=== PATIENT | female | born 1965 | race Caucasian/White ===

== ENCOUNTER 2020-03-28 05:31 | Observation (INO) | payer BC, SELFPAY ==
--- NOTE | ~2020-03-28 | XR_ITS ---
EXAMINATION: XR chest 2V DATE: 03/28/2020 08:20 INDICATION: Hypertension. Preop. TECHNIQUE: Frontal and lateral views of the chest were obtained. COMPARISON: Chest 2 views 03/05/2019 FINDINGS: The chest demonstrates clear lungs without pneumonia, pleural effusion, or pneumothorax. Th e heart size is normal. There are prominent paracardial fat pads. IMPRESSION: 1. No acute cardiopulmonary disease. Reviewed, dictated and finalized at location A.
[2020-03-28 07:34] VITALS: BMI 35.4
--- NOTE | 2020-03-28 07:44 | ADMGEN ---
This patient, Ivonne Chavira, was admitted to 2 Medical Room 240-01. Patient/family oriented to hospital policies and general routines including ID bracelet, bed and alarms, visiting hours, pain management, procedures, bathroom and other care routines, personal items, smoking policy, room service/diet, and visiting hours. Valuables list has been completed. Information on how to activate the Rapid Response Team has been discussed. Patient/Family are encouraged to report perceived risks to care and to ask questions if they do not understand what they are told or what they should do.
[2020-03-28 07:50] VITALS: BP 112/60; PULSE 90; RESP 16; TEMP 37.2; O2SAT 97
[2020-03-28] MEDS: SODIUM CHLORIDE 0.9% IV 1,000 ML 100 ML IV CONT ×2 (08:49→19:47)
[2020-03-28] MEDS: DOCUSATE SODIUM 100 MG CAPSULE PO ×2 (08:51→17:46)
[2020-03-28] MEDS: ENOXAPARIN 40 MG/0.4 ML SYRINGE SUB-Q (08:58)
[2020-03-28 10:00] VITALS: BP 101/65; PULSE 87; RESP 14; TEMP 36.7; O2SAT 96
[2020-03-28 10:07] LABS: Add Urine Microscopic? YES; Appearance Urine Clear (Clear); Bilirubin Urine Negative (Negative); Blood Urine 1+ (Negative); Color Urine Straw (Yellow); Glucose Urine UA Negative (Negative); Ketones Urine Trace mg/dL (Negative); Leukocyte Esterase Ur Negative LEU/UL (Negative); Nitrate Urine Negative (Negative); Protein Urine Negative (Negative); Squamous Epithelial Cell Urine Few /hpf (Few); Urobilinogen Urine Negative mg/dL (<2.0); WBC Urine 0-3 /hpf
[2020-03-28] MEDS: MORPHINE SULFATE 2 MG/ML INJ IV PUSH (10:51)
[2020-03-28] MEDS: ONDANSETRON INJ 4 MG/2 ML VIAL IV PUSH ×3 (10:57→23:59)
[2020-03-28 14:00] VITALS: BP 105/65; PULSE 87; RESP 14; TEMP 36.9; O2SAT 96
--- NOTE | 2020-03-28 14:51 | PM.IMHP ---
H&P: HPI History of Present Illness Date/Time: 03/28/20 14:51 Chief complaint: Stump Appendicitis Narrative: Ivonne Chavira is a 54 year old female states that she was feeling normal and okay until approximately 4:30 p.m. yesterday. She then began having some cramping abdominal pain and by evening was feeling worse and nauseated. Therefore she went to the emergency room at [facility]. Workup there showed a normal white count at around [address] scan which showed what appeared to be stump appendicitis with a single appendicoliths still at the base of the appendix. Interestingly I reviewed her previous op note and the pictures from the surgery. She did have a normal appearing Meckel's diverticulum off the more proximal ileum at the time of her surgery therefore, I reviewed her CT scan with our radiologist but he still agrees with the radiologist at [facility] that there appears to be a small stump of the appendix with appendicolith in it and some surrounding stranding consistent with inflammation. There is no sign of perforation. Review of the previous CT scan from February of last year and the CT scan reveals no obvious signs of inflammation or even imaging imaging of the Meckel's diverticulum. Two fibroids can be seen on the uterus also. Patient has some chills in the emergency room there got a dose of Levaquin and Flagyl prior to being transferred to our facility. Because of this I am doing blood cultures under prior to resuming antibiotics which will be Zosyn 3.375 g Q 6 hours starting at 3:00 p.m. today. Review of Systems Constitutional: Constitutional: Reports as per HPI and Denies headache(s) Eyes: Eyes: Denies loss of vision and Denies eye pain ENT: Reports Normal hearing present, Denies change in voice, Denies dizziness and Denies headache(s) Cardiovascular: Cardiovascular: Denies chest pain and Denies dyspnea Respiratory: Respiratory: Denies dyspnea and Denies wheezing Gastrointestinal: Gastrointestinal: Reports abdominal pain ( Mild in the lower right abdomen), Denies constipation, Reports GI cramping, Denies dyspepsia and Denies vomiting Genitourinary: Comments: known history of uterine fibroids and a previous tubal ligation Musculoskeletal: Musculoskeletal: Denies back pain and Denies arthralgias Neurologic: Reports Normal hearing present, Denies dizziness, Reports headache(s) ( patient does have migraines and uses Maxalt for this.), Denies loss of vision and Denies memory loss Psychiatric: Psychiatric: Reports no additional psychiatric complaints, Denies memory loss and Denies panic attacks Endocrine: Endocrine: Reports no additional endocrine complaints Hematologic/Lymphatic: Hematologic/Lymphatic: Reports no additional hematologic/lymphatic complaints Allergic/Immunologic: Allergic/Immunologic: Denies wheezing PMFSH Past Medical History Medical History (Updated 03/28/20 @ 15:02 by Chico Lazo MD) HTN (hypertension) (Unknown) Meckel's diverticulum (~02/2019) Family History Family History (Updated 03/28/20 @ 15:23 by Valeria Kimble RN) Mother Diabetes mellitus Family history of malignant neoplasm Acute myocardial infarction Hypertension High cholesterol Social History Social History Smoking status: Never smoker Alcohol intake: never Substance use: never Gender identity (if verbalized by the patient): Female Spiritual care concerns: No Meds Home Medications and Allergies Home Medications Medication Instructions Recorded Confirmed Type fluoxetine 20 mg PO DAILY 03/28/20 03/28/20 History metoprolol tartrate 50 mg PO Q12H 03/28/20 03/28/20 History rizatriptan [Maxalt-[employer]ER [employer]PERATOR] 10 mg PO ONCE PRN 03/28/20 03/28/20 History simvastatin 20 mg PO DAILY 03/28/20 03/28/20 History Allergies Allergy/AdvReac Type Severity Reaction Status Date / Time No Known Allergies Allergy Verified 03/28/20 07:40 Vital Signs Vital Signs - 24 hr 03/28/20 07:50
[2020-03-28] MEDS: MORPHINE SULFATE 4 MG/ML INJ IV PUSH (17:08)
[2020-03-28 18:00] VITALS: BP 135/69; PULSE 88; RESP 14; TEMP 37.2; O2SAT 96
[2020-03-28 21:54] VITALS: BP 126/64; PULSE 89; RESP 18; TEMP 36.9; O2SAT 95
[2020-03-29] VITALS (15 sets, daily range): BP systolic 123–146; BP diastolic 66–88; PULSE 70–90; RESP 12–19; TEMP 36.2–37.5; O2SAT 90–100
[2020-03-29] MEDS: MORPHINE SULFATE 2 MG/ML INJ IV PUSH ×3 (03:25→18:16)
[2020-03-29 05:58] LABS: Basophils Percent Auto 0.4 % (0.2-1.2); Eosinophils Percent Auto 0.4 % (0-4.4); Hematocrit 37.8 % (37.0-47.0); Hemoglobin 12.2 g/dL (12.0-15.0); Immature Granulocyte Absolute 0.05 K/mm3 (0.00-0.031); Immature Granulocyte Percent A 0.5 % (0-0.5); Lymphocytes Absolute Auto 0.86 K/mm3 (0.9-3.2); Lymphocytes Percent Auto 8.5 % (18.3-44.2); Mean Corpuscular HGB Conc 32.3 g/dl (32-36); Mean Corpuscular Hemoglobin 30.8 pg (26-34); Mean Corpuscular Volume 95.5 fl (80-100); Mean Platelet Volume 11.4 fl (7.4-10.4); Monocytes Absolute Auto 0.6 K/mm3 (0.1-0.6); Monocytes Percent Auto 5.7 % (2.6-8.5); Neutrophils Absolute Auto 8.6 K/mm3 (1.3-6.7); Neutrophils Percent Auto 84.5 % (45.5-73.1); Platelet Count Result 152 k/mm3 (150-375); Red Blood Count 3.96 M/mm3 (4.2-5.4); Red Cell Distribution Width 13.1 % (11.5-14.5); White Blood Count 10.1 K/mm3 (4.5-10.0)
[2020-03-29] MEDS: SODIUM CHLORIDE 0.9% IV 1,000 ML 100 ML IV CONT (06:10)
[2020-03-29 06:18] LABS: Alanine Aminotransferase 19 U/L (4-35); Alkaline Phosphatase 128 U/L (38-126); Anion Gap 12 mmol/L (8-16); Aspartate Amino Transferase 27 U/L (14-36); Bilirubin,Total 0.6 mg/dL (0.2-1.3); Blood Urea Nitrogen 10 mg/dL (7-17); Calcium 8.6 mg/dL (8.4-10.2); Carbon Dioxide 22 mmol/L (22-30); Chloride 104 mmol/L (98-107); Estimated CRCL calculation 91 ml/min; Estimated Glomerular Filt Rate > 60; Glucose 135 mg/dL (65-105); Potassium 3.4 mmol/L (3.4-5.0); Sodium 138 mmol/L (137-145)
[2020-03-29] MEDS: ENOXAPARIN 40 MG/0.4 ML SYRINGE SUB-Q (09:16)
[2020-03-29] MEDS: DOCUSATE SODIUM 100 MG CAPSULE PO ×2 (09:16→18:14)
--- NOTE | 2020-03-29 11:15 | PC.NURSE ---
Called to room. Patient crying and holding her abdomen. States it hurts, it hurts, it feels like something exploded Abdomen remains bloated and tender to RLQ. Patient also c/o nausea. Called Dr. Lazo's office. Reported patient's complaints. Per office staff, Dr. Lazo is in the OR and they will get a message to him. Gave patient IV Zofran and scheduled IV Acetaminophen. Reassured patient that Dr. Lazo is being notified of her increased pain. Patient resting, but continues to cry. She states I want surgery right now. Explained to patient that Dr. Lazo will come up to assess her and will discuss options and treatment plan with her at that time.
[2020-03-29] MEDS: ONDANSETRON INJ 4 MG/2 ML VIAL IV PUSH ×2 (11:16→18:16)
[2020-03-29] MEDS: MORPHINE SULFATE 4 MG/ML INJ IV PUSH (12:13)
--- NOTE | 2020-03-29 12:27 | PC.NURSE ---
To OR via bed with OR staff. Consent to be obtained in preop.
--- NOTE | 2020-03-29 12:28 | WPDANESEPPF ---
Anes - Initial Pre Proc Eval Procedure: Operation Date: 03/29/20 12:30 Proposed Procedures p OPERATIVE LAPAROSCOPY,LYSIS OF ADHESIONS - Chico Lazo MD s POSSIBLE LAPAROTOMY,POSSIBLE SMALL BOWEL RESECTION - Chico Lazo MD Operation Date: 03/29/20 13:30 Proposed Procedures p Laparoscopic Appendiceal Stump Removal, Removal Of Meckel's Diverticulum - Chico Lazo MD Date/Time: 03/29/20 12:28 Surgeon: Chcio Lazo MD Pre Op Diagnosis: Stump Appendicitis Patient Data Age: 54 Gender: F Height: 1.65 m Weight: 96.6 kg Last Vital Signs Temp 37.2 C 03/29/20 10:00 Pulse 90 03/29/20 10:00 Resp 15 03/29/20 10:00 BP 141/70 H 03/29/20 10:00 Pulse Ox 95 03/29/20 10:00 Allergies Allergy/AdvReac Type Severity Reaction Status Date / Time No Known Allergies Allergy Verified 03/28/20 07:40 Home Medications Medication Instructions Recorded Confirmed Type fluoxetine 20 mg PO DAILY 03/28/20 03/28/20 History metoprolol tartrate 50 mg PO Q12H 03/28/20 03/28/20 History rizatriptan [Maxalt-[employer]] 10 mg PO ONCE PRN 03/28/20 03/28/20 History simvastatin 20 mg PO DAILY 03/28/20 03/28/20 History Laboratory Tests 03/29/20 03/29/20 05:00 05:00 WBC 10.1 K/mm3 H K/mm3 (4.5-10.0) RBC 3.96 M/mm3 L M/mm3 (4.2-5.4) Hgb 12.2 g/dL g/dL (12.0-15.0) Hct 37.8 % % (37.0-47.0) MCV 95.5 fl fl (80-100) MCH 30.8 pg pg (26-34) MCHC 32.3 g/dl g/dl (32-36) RDW 13.1 % % (11.5-14.5) Plt Count 152 k/mm3 k/mm3 (150-375) MPV 11.4 fl H fl (7.4-10.4) Immature Gran % (Auto) 0.5 % % (0-0.5) Neut % (Auto) 84.5 % H % (45.5-73.1) Lymph % (Auto) 8.5 % L % (18.3-44.2) Cole % (Auto) 5.7 % % (2.6-8.5) Eos % (Auto) 0.4 % % (0-4.4) Baso % (Auto) 0.4 % % (0.2-1.2) Lymph # (Auto) 0.86 K/mm3 L K/mm3 (0.9-3.2) Cole # (Auto) 0.6 K/mm3 K/mm3 (0.1-0.6) Eos # (Auto) 0.0 K/mm3 K/mm3 (0-0.3) Baso # (Auto) 0.0 K/mm3 K/mm3 (0.0-0.1) Abs Immat Gran (auto) 0.05 K/mm3 H K/mm3 (0.00-0.031) Absolute Neuts (auto) 8.6 K/mm3 H K/mm3 (1.3-6.7) Absolute Nucleated RBC 0.0 K/mm3 K/mm3 (0.0-0.012) Nucleated RBC % 0.0 % % (0.0-0.2) Sodium 138 mmol/L mmol/L (137-145) Potassium 3.4 mmol/L mmol/L (3.4-5.0) Chloride 104 mmol/L mmol/L (98-107) Carbon Dioxide 22 mmol/L mmol/L (22-30) Anion Gap 12 mmol/L mmol/L (8-16) BUN 10 mg/dL mg/dL (7-17) Creatinine 0.70 mg/dL mg/dL (0.7-1.0) Estim Creat Clear Calc 91 ml/min ml/min Estimated GFR > 60 (59 - ) Glucose 135 mg/dL H mg/dL (65-105) Calcium 8.6 mg/dL mg/dL (8.4-10.2) Total Bilirubin 0.6 mg/dL mg/dL (0.2-1.3) AST 27 U/L U/L (14-36) ALT 19 U/L U/L (4-35) Alkaline Phosphatase 128 U/L H U/L (38-126) Total Protein 7.0 g/dL g/dL (6.3-8.2) Albumin 4.0 g/dL g/dL (3.5-5.1) Patient hx anesthesia problems: none Family hx anesthesia problems: none PMFSH Past Medical History Medical History (Updated 03/29/20 @ 12:29 by Song Betancourt MD) Arthritis HTN (hypertension) (Unknown) Hypercholesterolemia Meckel's diverticulum (~02/2019) Obesity Family History Family History (Updated 03/28/20 @ 15:23 by Valeria Kimble RN) Mother Diabetes mellitus Family history of malignant neoplasm Acute myocardial infarction Hypertension High cholesterol Social History Social History Smoking status: Never smoker Alcohol intake: never Substance use: never Gender identity (if verbalized by the patient): Female Spiritual care concerns: No Anes - Eval Final PreProcedure Day of Procedure 03/29/20 12:28 Patient weight: obese Heart: regular rate and rhythm Lungs: clear to auscultation and normal air movement Airway: Mallampati sc
--- NOTE | 2020-03-29 13:23 | PM.PNGS ---
Progress Note: A&P Assessment and Plan (1) Appendicitis, unqualified: Code(s): K37 - Unspecified appendicitis Status: Acute Assessment and Plan: It appears the patient has appendicitis of the remaining stump of the appendix about 1.5 cm long. There is also an appendicolith and this with some surrounding stranding suggestive of inflammation. No signs of perforation at this time period Options discussed with the patient included antibiotic treatment and then subsequent interval appendectomy with possible removal of the known Meckel's diverticulum. Or more immediate operative intervention possibly tomorrow after continuing antibiotic therapy today. Will also keep this as an option as we treat her with IV antibiotics to see if her symptoms resolve. Since there is no signs of perforation or abscess I believe we can try antibiotic treatment and perhaps her surgical intervention would be easier and more complete if we did this in a delayed fashion when some of the inflmmation has resolved. Because she is not better today even with 24 hours of IV antibiotics will plan to proceed for into surgical intervention. The risks including that of bleeding infection possible injury to surrounding organs have been explained to her and she seems understand wished to proceed. (2) Meckel's diverticulum: Onset Date: ~02/2019 Code(s): Q43.0 - Meckel's diverticulum (displaced) (hypertrophic) Status: Acute Assessment and Plan: Non inflamed Meckel's diverticulum was noted at the time of her laparoscopic appendectomy in February of 2019. Have discussed with her going ahead if it seems appropriate to remove this at the time of this surgery. Pathology will then tells whether there is any gastric mucosa in the Meckel's diverticulum this hopefully will help her avoid a future problem. (3) Uterine fibroid: Onset Date: ~02/2019 Code(s): D25.9 - Leiomyoma of uterus, unspecified Status: Acute Assessment and Plan: One uterine fibroid was noted at the time of her surgical intervention for her appendectomy in February of 2019. Subsequently the recent CT scan shows a 2nd fibroid on the anterior upper uterus. Patient has had no unusual menstrual bleeding or other gynecologic problems in the interim period (4) HTN (hypertension): Onset Date: Unknown Code(s): I10 - Essential (primary) hypertension Status: Acute Assessment and Plan: patient on metoprolol for this and states that has been fairly well controlled. Subjective Subjective Date/Time Seen: 03/29/20 08:23 Patient states that she began feeling much worse at suppertime last night. She had severe pain in the right lower quadrant. She does not have widespread abdominal pain but also some significant nausea. She was NPO at midnight. At this point because this is worsening she would rather get this taken care of rather than try antibiotics and proceed with more elective surgery. Therefore, I will try to get her scheduled for a laparoscopy, removal of the appendiceal stump and removal of the Meckel's diverticulum for this afternoon. Review of Systems Constitutional: Constitutional: Reports no additional constitutional complaints ENT: Reports other (Mucous Membranes moist.) Cardiovascular: Cardiovascular: Denies dyspnea Respiratory: Respiratory: Denies pain on inspiration and Denies dyspnea Gastrointestinal: Gastrointestinal: Reports abdominal pain, Reports nausea and Reports vomiting Musculoskeletal: Musculoskeletal: Reports other (No calf swelling or edema) Integumentary/Breasts: Skin/Breast: Reports system reviewed and no additional complaints, except as docu Exam Const: General: cooperative, no acute distress, alert and awake Orientation/consciousness: patient oriented x3 HENMT: Mouth: Yes moist mucous membranes Neck: Neck: normal visual inspection Chest: Chest palpation & inspection: normal inspection o
[2020-03-29] MEDS: BUPIVACAINE/EPINEPHRINE 0.5% 30 ML VIAL 20 ML INFILTRATE (13:43)
[2020-03-29] MEDS: PHARMACIST COMMUNICATION ORDER 1 EACH XX (15:01)
[2020-03-29] MEDS: LACTATED RINGERS 1,000 ML 30 ML IV CONT ×2 (16:12)
--- NOTE | 2020-03-29 16:16 | PM.PROC ---
Procedure Note - Detailed Date of procedure: 03/29/20 Pre-op diagnosis: Stump Appendicitis 2. Meckel's diverticulum Post-op diagnosis: same Procedure performed: 1. laparoscopic excision of appendiceal stump with placement of GAGAN drain 2. laparoscopic diverticulectomy (Meckel's diverticulum). Description of procedure: The patient was seen again in the preoperative area and the abdomen was marked. The risks benefits possible complications of the procedure of laparoscopic and/or open laparotomy for removal of the remaining stump of the appendix that contains an appendicolith has been described to the patient. Possible problems including bleeding, infection, and possible injury to surrounding organs has been discussed. I also discussed removal of the known Meckel's diverticulum with her and she understands the possible risks of that to occluding leakage from the edge of the bowel. Following this patient was taken the operating room and standard induction of general anesthesia was undertaken by [facility] anesthesiology team. Following this a Charles catheter was placed and the patient was placed in supine position and entire abdomen was prepped and draped in usual sterile fashion. Following this we started by making a transverse infraumbilical incision in the old scar from her previous laparoscopic appendectomy. This was continued down through subcutaneous tissues and we placed a Doretha cannula in standard fashion, incising the fascia vertically and then placing 2 stay sutures in the fascia on either side and then under direct vision entering the peritoneum. The blunt Diez cannula was carefully slid into place and the balloon inflated and then the 2 stay sutures used to hold it in position. Following this the abdomen was insufflated to 15 mmHg CO2 gas. Careful inspection revealed the cecum to be somewhat high riding and perhaps at the mid abdominal level. Therefore, I placed 2 more ports, the 12 mm port in the suprapubic position at the midline almost in the same position that it was placed previously through that scar from her previous lap appendectomy. Subsequently I placed a 5 mm port in the left upper quadrant under direct vision. We used a 0 degree 5 mm camera so this camera and laparoscope were moved to that more upper left abdominal port site. I then completed operative laparoscopy using 2 graspers to carefully inspect the small bowel which seemed to be looped into the right lower quadrant and there was some purulent exudate noted in pelvis deep on the right and also just lateral to the cecum on the right. As we began pulling the small bowel toward the left and rotating the patient toward the left and into a Trendelenburg position, we identified the Meckel's diverticulum about 2 ft from the ileocecal valve. Using anendogia stapler with a blue load since this was a more clean procedure I did this first. We positioned the bowel such that I could place the stapler longitudinally across the base of the diverticulum parallel to the long axis of the small bowel. This nicely completely went across the base and I fired it and removed the diverticulum from the abdomen using the 12 mm umbilical port site and passed it off the field. Following this I carefully began dissecting in the area of the cecum. Two loops of small bowel were looped over toward the right side of the abdomen and were a part of the apparently forming abscess. It appeared that there was a small amount of leakage from the stump of the appendix which was yellowish, brown in color. My next step was to mobilize the lateral side of the cecum and I rotated it medially. This helped identify the inferior wall of the cecum toward the appendix. I was then able to grasp some of the purulent exudate on the appendiceal stump and then rotated the stump back and fortn for this I tried to dissect out and make more apparent what was appendix and what was wall of colon. One wall of the appendix was densely ad
[2020-03-29] MEDS: LACTATED RINGERS 1,000 ML 100 ML IV CONT (17:00)
--- NOTE | 2020-03-29 17:00 | PC.NURSE ---
Received patient from OR via bed with OR staff. Patient settled into room. Denies pain. No distress noted. 4 incisions noted intact with skin glue and NUNO. GAGAN drain noted in RLQ. Draining bloody drainage. O2 on at 2 liters per nasal cannula. SCDs continued. at bedside.
[2020-03-29] MEDS: METOPROLOL TARTRATE 50 MG TAB PO (20:30)
[2020-03-30] VITALS (9 sets, daily range): BP systolic 131–156; BP diastolic 69–89; PULSE 60–86; RESP 18–20; TEMP 36.2–36.6; O2SAT 92–97
[2020-03-30] MEDS: ONDANSETRON INJ 4 MG/2 ML VIAL IV PUSH ×3 (00:22→15:35)
[2020-03-30] MEDS: MORPHINE SULFATE 2 MG/ML INJ IV PUSH (00:22)
[2020-03-30] MEDS: RIZATRIPTAN BENZOATE 10 MG TABLET PO ×2 (05:18→15:34)
[2020-03-30 05:47] LABS: Hematocrit 31.1 % (37.0-47.0); Hemoglobin 10.3 g/dL (12.0-15.0); Mean Corpuscular HGB Conc 33.1 g/dl (32-36); Mean Corpuscular Hemoglobin 30.3 pg (26-34); Mean Corpuscular Volume 91.5 fl (80-100); Mean Platelet Volume 10.7 fl (7.4-10.4); Platelet Count Result 153 k/mm3 (150-375); Red Cell Distribution Width 12.9 % (11.5-14.5); White Blood Count 11.4 K/mm3 (4.5-10.0)
[2020-03-30 06:01] LABS: Anion Gap 5 mmol/L (8-16); Blood Urea Nitrogen 11 mg/dL (7-17); Carbon Dioxide 26 mmol/L (22-30); Chloride 103 mmol/L (98-107); Estimated CRCL calculation 105 ml/min; Estimated Glomerular Filt Rate > 60; Glucose 138 mg/dL (65-105); Magnesium 1.9 mg/dL (1.6-2.3); Potassium 3.5 mmol/L (3.4-5.0); Sodium 134 mmol/L (137-145)
--- NOTE | 2020-03-30 07:44 | WPDANESPN ---
Anes - Prog Note Post-Op Date/Time: 03/30/20 07:44 Cardiovascular status: normal Respiratory status: normal Airway patency: baseline Mental status: baseline Post-Op hydration status: normal Vital Signs: Last Vital Signs Temp 36.3 C L 03/30/20 06:00 Pulse 64 03/30/20 06:00 Resp 18 03/30/20 06:00 BP 149/88 H 03/30/20 06:00 Pulse Ox 96 03/30/20 06:00 I/O: Intake & Output 03/29/20 03/29/20 03/30/20 15:59 23:59 07:59 Intake Total 150 1100 1290 Output Total 795 452 Balance 150 305 838 Laboratory Tests 03/30/20 05:14 03/30/20 05:14 03/30/20 03/30/20 05:14 05:14 WBC 11.4 H RBC 3.40 L Hgb 10.3 L Hct 31.1 L MCV 91.5 MCH 30.3 MCHC 33.1 RDW 12.9 Plt Count 153 MPV 10.7 H Sodium 134 L Potassium 3.5 Chloride 103 Carbon Dioxide 26 Anion Gap 5 L BUN 11 Creatinine 0.60 L Estim Creat Clear Calc 105 Estimated GFR > 60 Glucose 138 H Calcium 8.0 L Magnesium 1.9 Microbiology 03/28/20 09:33 Blood Blood Culture - Preliminary 03/28/20 08:44 Blood Blood Culture - Preliminary Post-procedural complaints: none Patient Feedback: Patient satisfied with anesthetic care.
[2020-03-30] MEDS: SIMVASTATIN 20 MG TABLET PO (08:13)
[2020-03-30] MEDS: FLUoxetine HCL 20 MG CAPSULE PO (08:13)
[2020-03-30] MEDS: METOPROLOL TARTRATE 50 MG TAB PO ×2 (08:14→21:24)
[2020-03-30] MEDS: DOCUSATE SODIUM 100 MG CAPSULE PO ×2 (08:14→16:30)
[2020-03-30] MEDS: ENOXAPARIN 40 MG/0.4 ML SYRINGE SUB-Q (08:14)
--- NOTE | 2020-03-30 15:18 | PM.PNGS ---
Progress Note: A&P Assessment and Plan (1) Appendicitis, unqualified: Code(s): K37 - Unspecified appendicitis Status: Acute (2) Obesity: Code(s): E66.9 - Obesity, unspecified Status: Acute Assessment and Plan: Patient was found to have perforated stump appendicitis. The entire stump was removed yesterday laparoscopically. She is making reasonable progress for the 1st day. Does not appear to have ileus as she has good bowel sounds. Will gradually increase diet increased walking continue IV antibiotics for now. Will see later today how she is feeling but if not somewhat better than when she is now will consider going ahead with further antibiotics and await for discharge tomorrow. One thousand five hundred nurse reports patient is still moving slowly tolerating her low-fat diet but no bowel movement yet. She also has a headache. Will plan to keep her overnight on IV antibiotics and think about discharge tomorrow. (3) HTN (hypertension): Onset Date: Unknown Code(s): I10 - Essential (primary) hypertension Status: Acute Assessment and Plan: Continue usual home medication. (4) Meckel's diverticulum: Onset Date: ~02/2019 Code(s): Q43.0 - Meckel's diverticulum (displaced) (hypertrophic) Status: Acute Assessment and Plan: This was removed for pathologic diagnosis at time of this surgery. We discussed that this could be left behind but that it could cause problems in the future will await pathology regarding whether not there is gastric mucosa in this diverticulum. Additional Plan Maxalt renewed for patient's headache. Subjective Subjective Date/Time Seen: 03/30/20 15:18 Post Op day: 1 ( status post removal of residual appendiceal stump / Meckel's diverticulum.) Patient reports: no new complaints and feels better Interval history: Patient now tolerating full liquid diet. She is moving slowly still having some lower abdominal pain on the right. Drain is producing serosanguineous fluid. She has been up to the bathroom but now walking in the corea yet. She is using the incentive spirometer. Review of Systems Constitutional: Constitutional: Reports no additional constitutional complaints ENT: Reports other (Mucous Membranes moist.) Cardiovascular: Cardiovascular: Denies dyspnea Respiratory: Respiratory: Denies pain on inspiration and Denies dyspnea Gastrointestinal: Gastrointestinal: Denies loose stools Comments: Positive flatus no bowel movement yet Musculoskeletal: Musculoskeletal: Reports other (No calf swelling or edema) Integumentary/Breasts: Skin/Breast: Reports system reviewed and no additional complaints, except as docu Exam Const: General: cooperative, no acute distress, alert and awake Orientation/consciousness: patient oriented x3 HENMT: Mouth: Yes moist mucous membranes Neck: Neck: normal visual inspection Chest: Chest palpation & inspection: normal inspection of the chest Resp: Effort & Inspection: normal respiratory effort Auscultation: clear to auscultation bilaterally Cardio: Jugular venous distension: no JVD Rate: regular rate Rhythm: regular rhythm GI: GI Palp: Yes Firmness to palpation present (GI) and Yes Tenderness to palpation present (GI) ( right lower and mid abdomen) Auscultation: normal bowel sounds Rectal Exam: deferred Other: incisions clean and dry with surgical glue on them. GAGAN drain with dressing under Tegaderm right lower quadrant. Neuro: General: patient oriented x3 and moves all extremities Speech: normal speech Extrem: General: normal exam except as noted Psych: Mental Status: mental status grossly normal Speech and movement: Normal speech and movement present Affect: normal affect Thought content: Yes Normal thought content present Objective Data Vital Signs Vital Signs: Vital Signs - 24 hr 03/29/20 16:12 03/29/20 16:27 03/29/20 16:30 Temperature 36.8 C Pulse Rate
[2020-03-30] MEDS: IBUPROFEN 600 MG TABLET PO ×2 (15:34→21:25)
[2020-03-31 01:49] VITALS: BP 118/67; PULSE 51; RESP 18; TEMP 36.3; O2SAT 97
[2020-03-31] MEDS: IBUPROFEN 600 MG TABLET PO ×2 (03:57→08:13)
[2020-03-31] MEDS: RIZATRIPTAN BENZOATE 10 MG TABLET PO (04:23)
[2020-03-31 05:07] LABS: Mean Platelet Volume 10.8 fl (7.4-10.4); Platelet Count Result 180 k/mm3 (150-375)
[2020-03-31 08:13] VITALS: PULSE 68
[2020-03-31] MEDS: FLUoxetine HCL 20 MG CAPSULE PO (08:13)
[2020-03-31] MEDS: METOPROLOL TARTRATE 50 MG TAB PO (08:13)
[2020-03-31] MEDS: DOCUSATE SODIUM 100 MG CAPSULE PO (08:13)
[2020-03-31] MEDS: ENOXAPARIN 40 MG/0.4 ML SYRINGE SUB-Q (08:13)
[2020-03-31] MEDS: SIMVASTATIN 20 MG TABLET PO (08:13)
[2020-03-31 09:58] VITALS: BP 136/82; PULSE 65; RESP 17; TEMP 36.4; O2SAT 98
--- NOTE | 2020-03-31 12:11 | PM.DS ---
DS: Admitting Diagnosis Admitting Diagnosis Admitting Diagnosis: Stump Appendicitis DS: Discharge Diagnosis Discharge Diagnosis (1) Obesity: Onset Date: Unknown Code(s): E66.9 - Obesity, unspecified Status: Acute Assessment and Plan: BMI is 35 and I encouraged her to stay on a low-fat diet to try to lose some weight. We also encouraged activity with gradually increasing walking. (2) HTN (hypertension): Onset Date: Unknown Code(s): I10 - Essential (primary) hypertension Status: Acute Assessment and Plan: Patient will resume her home antihypertensive medications. 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 She has not currently been having any significant menstrual or vaginal bleeding. (4) Meckel's diverticulum: Onset Date: ~02/2019 Code(s): Q43.0 - Meckel's diverticulum (displaced) (hypertrophic) Status: Acute Assessment and Plan: This resected and by pathology was unremarkable without any gastric remnant within it. No signs of malignancy. (5) Appendicitis, unqualified: Code(s): K37 - Unspecified appendicitis Status: Acute Assessment and Plan: Patient had stump appendicitis with perforation. She had localized peritonitis in the area of cecum and appendix stump. Because of this she was continued on IV antibiotics and a drain was left in place and general area where this was present. Significant dissection was required in order to adequately mobilize the 1.5 cm stump of the appendix and small rim of normal cecum was excised with the gastrointestinal laparoscopic stapling device as remove the stump. Pathology revealed the stump with perforation without signs of malignancy or other problems. DS: Summary Hospital Course Reason for hospitalization: Stump appendicitis with abdominal pain Hospital Course: The patient's hospital course was fairly unremarkable. Once admitted she was started on antibiotics and then because of the findings on CT scan I scheduled her for surgery. I did talk to her also about the Meckel's diverticulum that was seen on her previous appendectomy and she wanted it resected in order to try to avoid problems with the in the future. We are subsequently able to laparoscopically remove the remaining stump of the appendix which is must of been fairly inflamed and stuck to the sidewall of the cecum during her last appendectomy which was the reason that was left behind. The Meckel diverticulum was non inflamed and easily resected with a endoscopic intestinal stapler. Patient tolerated surgery well. A drain was left because of the inflammatory change in the area of the stump of the appendix. It did appear that it had perforated. I biotic for continued and after 2 days she was tolerating a liquid diet and the ileus seemed to have improved. Therefore, she appeared ready to be discharged on oral antibiotics. Status at Discharge Cognitive/behavioral status at discharge: Seems to be improved back to baseline Functional status at discharge: independent ambulation Overall status at discharge: patient is not back to baseline ( patient still has a ways to go to recover as her ileus is still improving and we will have her stay on a low diet because she should be able to lose some weight.) Time Spent with Patient Time attestation: Total time spent providing and/or coordinating discharge services: Time spent: Greater than 30 minutes Exam Const: General: cooperative, no acute distress, well developed, alert and awake Nutritional Appearance: well nourished Orientation/consciousness: patient oriented x3 Limitations: no limitations HENMT: Head: normal to inspection, norm
== END 2020-03-31 12:58 | disposition home or self-care (01) ==
PROVIDERS: Admitting Provider Surgery; PCP Internal Medicine; Visit Provider Surgery
PROC: 0DTJ4ZZ Resection of Appendix, Percutaneous Endoscopic Approach (ICD-10-PCS; CPT 44970; principal; 2020-03-29 13:30)
DX: K38.8 Other specified diseases of appendix (principal); Q43.0 Meckel's diverticulum (displaced) (hypertrophic); D25.9 Leiomyoma of uterus, unspecified; I10 Essential (primary) hypertension; E66.9 Obesity, unspecified; Z68.35 Body mass index [BMI] 35.0-35.9, adult; K35.32 Acute appendicitis with perforation, localized peritonitis, and gangrene, without abscess
CPT/HCPCS: 44979; 36415; 71046; 80048; 80053; 81001; 83735; 85025; 85027; 85049; 87040; 88304; 88307; A9270; G0378; J0131; J0330; J1100; J1650; J2250; J2270; J2405; J2543; J2704; J2710; J3010; J7030; J7120

== ENCOUNTER 2020-04-02 03:13 | Inpatient (IN) | payer BC, SELFPAY ==
--- NOTE | ~2020-04-02 | XR_ITS ---
EXAMINATION: XR abdomen obstructive series DATE: 04/06/2020 08:17 INDICATION: Adynamic ileus. TECHNIQUE: Upright and supine views of the abdomen were obtained. COMPARISON: Abdomen radiographs 04/05/2020 FINDINGS: There is a dilated loop of small bowel in left abdomen. The colon is normal in caliber. No free intraperitoneal gas. There is a surgical drain in right abdomen. Calcifications in the pelvis ar e likely phleboliths. IMPRESSION: 1. Dilated small bowel, consistent with adynamic ileus. Reviewed, dictated and finalized at location B.
--- NOTE | ~2020-04-02 | XR_ITS ---
EXAMINATION: XR abdomen NG/feed tube rechec DATE: 04/02/2020 04:41 INDICATION: Nasogastric tube placement. TECHNIQUE: An upright view of the abdomen was obtained. COMPARISON: CT abdomen and pelvis 03/28/2020 FINDINGS: The lower abdomen and right lateral aspect of the abdomen are excluded. There are multiple dilated loops of small bowel, consistent with adynamic ileus. The colon is decompressed. The nasogast ester tube tip is in the stomach. There is mild atelectasis in right lower lung zone. IMPRESSION: 1. Nasogastric tube tip in the stomach. 2. Dilated small bowel, consistent with adynamic ileus. Reviewed, dictated and finalized at location A.
--- NOTE | ~2020-04-02 | XR_ITS ---
EXAMINATION: XR abdomen obstructive series DATE: 04/05/2020 10:42 INDICATION: Adynamic ileus. TECHNIQUE: Upright and supine views of the abdomen were obtained. COMPARISON: CT abdomen and pelvis 03/28/2020 FINDINGS: There are dilated loops of small bowel. A surgical drain overlies right abdomen. The colon is decompressed. No free intraperitoneal gas. There are phleboliths in the pelvis. IMPRESSION: 1. Dilated small bowel, consistent with adynamic ileus. Reviewed, dictated and finalized at location B.
--- NOTE | 2020-04-02 02:45 | ADMGEN ---
This patient, Ivonne Chavira, was admitted to 3 [facility] Surg Room 303-01. Patient/family oriented to hospital policies and general routines including ID bracelet, bed and alarms, visiting hours, pain management, procedures, bathroom and other care routines, personal items, smoking policy, room service/diet, and visiting hours. Valuables list has been completed. Information on how to activate the Rapid Response Team has been discussed. Patient/Family are encouraged to report perceived risks to care and to ask questions if they do not understand what they are told or what they should do.
[2020-04-02 03:53] VITALS: BP 151/79; PULSE 69; RESP 18; TEMP 36.4; O2SAT 99; BMI 35.5
[2020-04-02] MEDS: SODIUM CHLORIDE 0.9% IV 1,000 ML 100 ML IV CONT ×2 (04:49→16:18)
[2020-04-02 06:00] VITALS: BP 150/78; PULSE 74; RESP 18; TEMP 36.5; O2SAT 90
[2020-04-02 06:10] LABS: Hematocrit 28.6 % (37.0-47.0); Hemoglobin 9.5 g/dL (12.0-15.0); Mean Corpuscular HGB Conc 33.2 g/dl (32-36); Mean Corpuscular Hemoglobin 29.8 pg (26-34); Mean Corpuscular Volume 89.7 fl (80-100); Mean Platelet Volume 10.2 fl (7.4-10.4); Platelet Count Result 252 k/mm3 (150-375); Red Blood Count 3.19 M/mm3 (4.2-5.4); Red Cell Distribution Width 12.5 % (11.5-14.5); White Blood Count 8.3 K/mm3 (4.5-10.0)
[2020-04-02 06:25] LABS: Anion Gap 6 mmol/L (8-16); Blood Urea Nitrogen 5 mg/dL (7-17); Calcium 7.9 mg/dL (8.4-10.2); Carbon Dioxide 28 mmol/L (22-30); Chloride 105 mmol/L (98-107); Estimated CRCL calculation 105 ml/min; Estimated Glomerular Filt Rate > 60; Glucose 130 mg/dL (65-105); Potassium 2.9 mmol/L (3.4-5.0); Sodium 139 mmol/L (137-145)
[2020-04-02] MEDS: ONDANSETRON INJ 4 MG/2 ML VIAL IV PUSH (09:32)
[2020-04-02] MEDS: levoFLOXacin 500 MG/D5W 100 ML 500 MG/100 ML BAG 100 MG IVPB (10:57)
--- NOTE | 2020-04-02 12:25 | PM.IMHP ---
H&P: HPI History of Present Illness Date/Time: 04/02/20 09:25 Chief complaint: post operative ileus Narrative: Ivonne Chavira is a 54 year old female Who approximately 4 days ago underwent a laparoscopic procedure for excision of an appendiceal stump contain a fecalith and also removal of a Meckel's diverticulum. She had a fairly uneventful postoperative recovery and seem to have return bowel function on the day of discharge which was 2 days ago. She states that that evening she was feeling fine ate some soup and then went to bed but had nausea fungal Ng to bed she vomited a small amount once. Then yesterday morning when she got up she continued to have bloating of the abdomen nausea without vomiting. Then late last night because she was not getting anybetter she went to the emergency room in [place] and was actually transferred here after a contact my partner Dr. Akins. She apparently had a CT scan of the abdomen pelvis in [place] which suggested postoperative ileus. Review of Systems Constitutional: Constitutional: Reports as per HPI and Denies headache(s) Eyes: Eyes: Denies loss of vision and Denies eye pain ENT: Reports Normal hearing present, Denies change in voice, Denies dizziness and Denies headache(s) Cardiovascular: Cardiovascular: Denies chest pain and Denies dyspnea Respiratory: Respiratory: Denies dyspnea and Denies wheezing Gastrointestinal: Gastrointestinal: Denies diarrhea, Denies loose stools and Reports nausea Genitourinary: Genitourinary: Denies menorrhagia and Denies urinary hesitancy Musculoskeletal: Musculoskeletal: Denies back pain and Denies arthralgias Neurologic: Reports Normal hearing present, Denies dizziness, Denies headache(s), Denies loss of vision and Denies memory loss Psychiatric: Psychiatric: Denies memory loss and Denies panic attacks Endocrine: Endocrine: Reports no additional endocrine complaints Hematologic/Lymphatic: Hematologic/Lymphatic: Reports no additional hematologic/lymphatic complaints Allergic/Immunologic: Allergic/Immunologic: Denies wheezing PMFSH Past Medical History Medical History (Updated 04/02/20 @ 12:41 by Chico Lazo MD) Arthritis HTN (hypertension) (Unknown) Hypercholesterolemia (Unknown) Meckel's diverticulum (~02/2019) Obesity (Unknown) Family History Family History Mother Diabetes mellitus Family history of malignant neoplasm Acute myocardial infarction Hypertension High cholesterol Social History Social History Smoking status: Never smoker Alcohol intake: current Drinks per week: 1 Substance use: never Gender identity (if verbalized by the patient): Female Spiritual care concerns: No Meds Home Medications and Allergies Home Medications Medication Instructions Recorded Confirmed Type fluoxetine 20 mg PO DAILY 03/28/20 04/02/20 History metoprolol tartrate 50 mg PO Q12H 03/28/20 04/02/20 History rizatriptan [Maxalt-TEST ENGINE OPERATOR] 10 mg PO ONCE PRN 03/28/20 04/02/20 History simvastatin 20 mg PO DAILY 03/28/20 04/02/20 History ibuprofen 600 mg PO Q6H #30 tablet 03/31/20 04/02/20 Rx levofloxacin 500 mg PO DAILY #10 tablet 03/31/20 04/02/20 Rx metronidazole 500 mg PO Q8H #30 tablet 03/31/20 04/02/20 Rx Allergies Allergy/AdvReac Type Severity Reaction Status Date / Time No Known Allergies Allergy Verified 03/28/20 07:40 Vital Signs Vital Signs - 24 hr 04/02/20 03:53 04/02/20 06:00 Temperature 36.4 C L 36.5 C Pulse Rate 69 74 Respiratory Rate 18 18 Blood Pressure 151/79 H 150/78 H Pulse Oximetry 99 90 Exam Const: General: no acute distress Nutritional Appearance: well nourished Orientation/consciousness: patient oriented x3 Limitations: no limitations HENMT: Head: normal to inspection, normocephalic and atraumatic Ears: hearing grossly normal bilaterally General nose exam:
[2020-04-02 14:00] VITALS: BP 146/69; PULSE 65; RESP 20; TEMP 36.3; O2SAT 100
[2020-04-02] MEDS: metroNIDAZOLE 500 MG/ISO 100ML 500 MG/100 ML BAG 100 MG IVPB ×2 (14:23→18:59)
[2020-04-02] MEDS: PANTOPRAZOLE SODIUM IV 40 MG VIAL IV PUSH (16:17)
[2020-04-02] MEDS: PROCHLORPERAZINE 25 MG SUPP.RECT RECTAL (16:18)
[2020-04-02] MEDS: BISACODYL 10 MG SUPPOSITORY RECTAL (18:59)
[2020-04-02 22:00] VITALS: BP 151/67; PULSE 78; RESP 20; TEMP 36.8; O2SAT 100
[2020-04-03] VITALS (7 sets, daily range): BP systolic 138–163; BP diastolic 55–79; PULSE 65–76; RESP 16–18; TEMP 36.5–36.7; O2SAT 98–99
[2020-04-03] MEDS: metroNIDAZOLE 500 MG/ISO 100ML 500 MG/100 ML BAG 100 MG IVPB ×3 (02:05→17:51)
[2020-04-03] MEDS: SODIUM CHLORIDE 0.9% IV 1,000 ML 100 ML IV CONT ×2 (06:04→21:39)
[2020-04-03 06:30] LABS: Basophils Percent Auto 0.3 % (0.2-1.2); Eosinophils Absolute Auto 0.2 K/mm3 (0-0.3); Eosinophils Percent Auto 1.5 % (0-4.4); Hematocrit 28.9 % (37.0-47.0); Hemoglobin 9.6 g/dL (12.0-15.0); Immature Granulocyte Absolute 0.31 K/mm3 (0.00-0.031); Lymphocytes Absolute Auto 1.46 K/mm3 (0.9-3.2); Lymphocytes Percent Auto 14.1 % (18.3-44.2); Mean Corpuscular HGB Conc 33.2 g/dl (32-36); Mean Corpuscular Hemoglobin 30.2 pg (26-34); Mean Corpuscular Volume 90.9 fl (80-100); Mean Platelet Volume 9.9 fl (7.4-10.4); Monocytes Absolute Auto 0.5 K/mm3 (0.1-0.6); Monocytes Percent Auto 5.1 % (2.6-8.5); Neutrophils Absolute Auto 7.9 K/mm3 (1.3-6.7); Platelet Count Result 279 k/mm3 (150-375); Red Blood Count 3.18 M/mm3 (4.2-5.4); Red Cell Distribution Width 13.1 % (11.5-14.5); White Blood Count 10.4 K/mm3 (4.5-10.0)
[2020-04-03 07:10] LABS: Alanine Aminotransferase 16 U/L (4-35); Albumin Level 3.1 g/dL (3.5-5.1); Alkaline Phosphatase 119 U/L (38-126); Anion Gap 9 mmol/L (8-16); Aspartate Amino Transferase 32 U/L (14-36); Bilirubin,Total 0.3 mg/dL (0.2-1.3); Blood Urea Nitrogen 8 mg/dL (7-17); Carbon Dioxide 24 mmol/L (22-30); Chloride 106 mmol/L (98-107); Estimated CRCL calculation 105 ml/min; Estimated Glomerular Filt Rate > 60; Glucose 110 mg/dL (65-105); Lipase 96 U/L (23-300); Magnesium 2.3 mg/dL (1.6-2.3); Potassium 2.7 mmol/L (3.4-5.0); Sodium 139 mmol/L (137-145)
[2020-04-03] MEDS: PANTOPRAZOLE SODIUM IV 40 MG VIAL IV PUSH (08:48)
--- NOTE | 2020-04-03 09:10 | PM.PNGS ---
Progress Note: A&P Assessment and Plan (1) Ileus following gastrointestinal surgery: Onset Date: ~04/01/20 Code(s): K91.89 - Other postprocedural complications and disorders of digestive system; K56.7 - Ileus, unspecified Status: Acute Assessment and Plan: slowly regaining bowel fxn, will clamp NG and poss remove later today, start clears if NG out, encourage OOB, ambulation (2) Hypokalemia: Code(s): E87.6 - Hypokalemia Status: Acute Assessment and Plan: will replace K and recheck in am Subjective Subjective Date/Time Seen: 04/03/20 09:10 feels pretty good, BM x 2 overnight, no further N/V Review of Systems Constitutional: Constitutional: Denies body ache(s), Denies chills, Reports fatigue, Reports lethargy and Reports weakness Cardiovascular: Cardiovascular: Denies chest pain Respiratory: Respiratory: Denies dyspnea Gastrointestinal: Gastrointestinal: Reports abdominal pain, Reports bloating, Denies constipation, Denies diarrhea, Reports nausea and Reports vomiting Exam Const: General: no acute distress Resp: Auscultation: clear to auscultation bilaterally Cardio: Rate: regular rate Rhythm: regular rhythm GI: Other: soft, mod dist, hemant TTP Objective Data Vital Signs Vital Signs: Vital Signs - 24 hr 04/02/20 14:00 04/02/20 22:00 04/03/20 06:00 Temperature 36.3 C L 36.8 C 36.7 C Pulse Rate 65 78 76 Respiratory Rate 20 20 18 Blood Pressure 146/69 H 151/67 H 163/79 H Pulse Oximetry 100 100 99 04/03/20 08:00 Temperature Pulse Rate 74 Respiratory Rate Blood Pressure Pulse Oximetry Intake/Output Intake/Output: Intake & Output 03/31/20 04/01/20 04/02/20 04/03/20 23:59 23:59 23:59 23:59 Intake Total 1300 1100 Output Total 1620 420 Balance -320 680 Meds/Results Medications: Active Medications Generic Name Dose Route Start Last Admin Trade Name Freq PRN Reason Stop Dose Admin Bisacodyl 10 mg 04/02/20 11:32 04/02/20 18:59 Dulcolax Suppository RECTAL 10 mg QAM PRN Administration Constipation Hydralazine HCl 10 mg 04/02/20 12:50 Apresoline Hcl Inj IV PUSH Q8H PRN Blood Pressure - High Sodium Chloride 1,000 mls @ 100 mls/hr 04/02/20 04:15 04/03/20 06:04 Normal Saline Iv IV CONT 100 mls/hr .Q10H GAURANG Administration Levofloxacin/Dextrose 500 mg in 100 mls @ 100 mls/hr 04/02/20 10:00 04/02/20 11:57 Levaquin 500 Mg/D5w 100 Ml IVPB Infused DAILY GAURANG Infusion Metronidazole 500 mg in 100 mls @ 100 mls/hr 04/02/20 10:00 04/03/20 03:05 Flagyl 500 Mg/Iso Soln 100 Ml IVPB Infused Q8H GAURANG Infusion Potassium Chloride 500 mls @ 125 mls/hr 04/03/20 08:23 04/03/20 08:47 Kcl 40 Meq/D5w 500 Ml Peripheral IVPB 04/03/20 12:22 125 mls/hr ONCE ONE Administration Morphine Sulfate 1 mg 04/02/20 04:48 Morphine Sulfate Inj IV PUSH Q2H PRN Pain Pantoprazole Sodium 40 mg 04/02/20 09:00 04/03/20 08:48 Protonix Iv IV PUSH 40 mg QAM GAURANG Administration Prochlorperazine 25 mg 04/02/20 09:32 04/02/20 16:18 Compazine Supp RECTAL 25 mg Q12H PRN Administration Nausea And Vomiting Radiology Results: ITS Impressions Abdomen X-Ray 04/02/20 07:11 IMPRESSION: 1. Nasogastric tube tip in the stomach. 2. Dilated small bowel, consistent with adynamic ileus. Labs Labs: Laboratory Results - last 24 hr 04/03/20 04/03/20 05:51 05:51 WBC 10.4 H RBC 3.18 L Hgb 9.6 L Hct 28.9 L MCV 90.9 MCH 30.2 MCHC 33.2 RDW 13.1 Plt Count 279 MPV 9.9 Immature Gran % (Auto) 3.0 H Neut % (Auto) 76.0 H Lymph % (Auto) 14.1 L Beckham % (Auto) 5.1 Eos % (Auto) 1.5 Baso % (Auto) 0.3 Lymph # (Auto) 1.46 Beckham # (Auto) 0.5 Eos # (Auto) 0.2 Baso # (Auto) 0.0 Abs Immat Gran (auto) 0.31 H Absolute Neuts (auto) 7.9 H Absolute Nucleated RBC 0.0 Nucleated RBC % 0.0 Sodium 139 Potassium 2.7 L* Chl
[2020-04-03] MEDS: levoFLOXacin 500 MG/D5W 100 ML 500 MG/100 ML BAG 100 MG IVPB (09:13)
[2020-04-03] MEDS: PROCHLORPERAZINE 25 MG SUPP.RECT RECTAL (10:36)
[2020-04-04] VITALS (9 sets, daily range): BP systolic 150–164; BP diastolic 77–79; PULSE 63–79; RESP 16–18; TEMP 36.6–37.1; O2SAT 97–99
[2020-04-04] MEDS: metroNIDAZOLE 500 MG/ISO 100ML 500 MG/100 ML BAG 100 MG IVPB ×3 (01:48→16:55)
[2020-04-04 07:15] LABS: Anion Gap 9 mmol/L (8-16); Blood Urea Nitrogen 9 mg/dL (7-17); Carbon Dioxide 22 mmol/L (22-30); Chloride 107 mmol/L (98-107); Estimated CRCL calculation 105 ml/min; Estimated Glomerular Filt Rate > 60; Glucose 105 mg/dL (65-105); Potassium 2.9 mmol/L (3.4-5.0); Sodium 138 mmol/L (137-145)
[2020-04-04] MEDS: POTASSIUM CHLORIDE 20 MEQ TABLET 40 MEQ PO (08:35)
[2020-04-04] MEDS: levoFLOXacin 500 MG/D5W 100 ML 500 MG/100 ML BAG 100 MG IVPB (08:36)
[2020-04-04] MEDS: PANTOPRAZOLE SODIUM IV 40 MG VIAL IV PUSH (08:36)
--- NOTE | 2020-04-04 09:37 | PM.PNGS ---
Progress Note: A&P Assessment and Plan (1) Ileus following gastrointestinal surgery: Onset Date: ~04/01/20 Code(s): K91.89 - Other postprocedural complications and disorders of digestive system; K56.7 - Ileus, unspecified Status: Acute Assessment and Plan: improved, dc NG today, clears, OOB/IS (2) Hypokalemia: Code(s): E87.6 - Hypokalemia Status: Acute Assessment and Plan: replace c both IV and po supplementation Subjective Subjective Date/Time Seen: 04/04/20 09:37 feels ok, episode of emesis this am felt to be secondary to gag reflex from NG, kimmie clamp NG overnight, +multiple BMs Review of Systems Constitutional: Constitutional: Reports fatigue and Reports weakness Cardiovascular: Cardiovascular: Denies chest pain Respiratory: Respiratory: Denies dyspnea Gastrointestinal: Gastrointestinal: Denies abdominal pain, Denies constipation, Denies diarrhea, Denies nausea and Reports vomiting Exam Const: General: no acute distress Resp: Auscultation: clear to auscultation bilaterally Cardio: Rate: regular rate Rhythm: regular rhythm GI: Other: S, sl dist, hemant TTP, incisions C/D/I Objective Data Vital Signs Vital Signs: Vital Signs - 24 hr 04/03/20 12:00 04/03/20 14:00 04/03/20 16:00 Temperature 36.7 C Pulse Rate 69 74 65 Respiratory Rate 18 Blood Pressure 149/70 H Pulse Oximetry 99 04/03/20 20:00 04/03/20 22:00 04/04/20 00:00 Temperature 36.5 C Pulse Rate 67 74 63 Respiratory Rate 16 Blood Pressure 138/55 L Pulse Oximetry 98 04/04/20 04:00 04/04/20 06:00 Temperature 36.6 C Pulse Rate 64 67 Respiratory Rate 18 Blood Pressure 164/79 H Pulse Oximetry 97 Intake/Output Intake/Output: Intake & Output 04/01/20 04/02/20 04/03/20 04/04/20 23:59 23:59 23:59 23:59 Intake Total 1300 2900 100 Output Total 1620 1453 258 Balance -320 1447 -158 Meds/Results Medications: Active Medications Generic Name Dose Route Start Last Admin Trade Name Freq PRN Reason Stop Dose Admin Bisacodyl 10 mg 04/02/20 11:32 04/02/20 18:59 Dulcolax Suppository RECTAL 10 mg QAM PRN Administration Constipation Hydralazine HCl 10 mg 04/02/20 12:50 Apresoline Hcl Inj IV PUSH Q8H PRN Blood Pressure - High Sodium Chloride 1,000 mls @ 100 mls/hr 04/02/20 04:15 04/04/20 02:36 Normal Saline Iv IV CONT 100 mls/hr .Q10H GAURANG Infusion Levofloxacin/Dextrose 500 mg in 100 mls @ 100 mls/hr 04/02/20 10:00 04/04/20 08:36 Levaquin 500 Mg/D5w 100 Ml IVPB 100 mls/hr DAILY GAURANG Administration Metronidazole 500 mg in 100 mls @ 100 mls/hr 04/02/20 10:00 04/04/20 02:36 Flagyl 500 Mg/Iso Soln 100 Ml IVPB 100 mls/hr Q8H GAURANG Infusion Potassium Chloride 500 mls @ 125 mls/hr 04/04/20 07:30 04/04/20 08:34 Kcl 40 Meq/D5w 500 Ml Peripheral IVPB 04/04/20 11:29 125 mls/hr ONCE ONE Administration Morphine Sulfate 1 mg 04/02/20 04:48 Morphine Sulfate Inj IV PUSH Q2H PRN Pain Pantoprazole Sodium 40 mg 04/02/20 09:00 04/04/20 08:36 Protonix Iv IV PUSH 40 mg QAM GAURANG Administration Prochlorperazine 25 mg 04/02/20 09:32 04/03/20 10:36 Compazine Supp RECTAL 25 mg Q12H PRN Administration Nausea And Vomiting Radiology Results: ITS Impressions Abdomen X-Ray 04/02/20 07:11 IMPRESSION: 1. Nasogastric tube tip in the stomach. 2. Dilated small bowel, consistent with adynamic ileus. Labs Labs: Laboratory Results - last 24 hr 04/04/20 05:49 Sodium 138 Potassium 2.9 L Chloride 107 Carbon Dioxide 22 Anion Gap 9 BUN 9 Creatinine 0.60 L Estim Creat Clear Calc 105 Estimated GFR > 60 Glucose 105 Calcium 8.0 L
[2020-04-04] MEDS: SODIUM CHLORIDE 0.9% IV 1,000 ML 100 ML IV CONT ×2 (11:42→22:59)
[2020-04-05] VITALS (11 sets, daily range): BP systolic 145–155; BP diastolic 72–86; PULSE 60–82; RESP 16–18; TEMP 36.1–36.7; O2SAT 99–100
[2020-04-05] MEDS: metroNIDAZOLE 500 MG/ISO 100ML 500 MG/100 ML BAG 100 MG IVPB ×3 (03:01→17:56)
[2020-04-05 07:06] LABS: Anion Gap 8 mmol/L (8-16); Blood Urea Nitrogen 5 mg/dL (7-17); Carbon Dioxide 23 mmol/L (22-30); Chloride 107 mmol/L (98-107); Estimated CRCL calculation 105 ml/min; Estimated Glomerular Filt Rate > 60; Glucose 112 mg/dL (65-105); Potassium 3.1 mmol/L (3.4-5.0); Sodium 138 mmol/L (137-145)
[2020-04-05] MEDS: levoFLOXacin 500 MG/D5W 100 ML 500 MG/100 ML BAG 100 MG IVPB (09:59)
[2020-04-05] MEDS: FLUoxetine HCL 20 MG CAPSULE PO (10:00)
[2020-04-05] MEDS: METOPROLOL TARTRATE 50 MG TAB PO ×2 (10:01→20:34)
[2020-04-05] MEDS: PANTOPRAZOLE SODIUM IV 40 MG VIAL IV PUSH (10:01)
[2020-04-05] MEDS: BISACODYL 10 MG SUPPOSITORY RECTAL (10:05)
[2020-04-05] MEDS: SODIUM CHLORIDE 0.9% IV 1,000 ML 100 ML IV CONT ×2 (10:15→14:38)
[2020-04-05] MEDS: POTASSIUM CHLORIDE 20 MEQ TABLET PO (15:00)
--- NOTE | 2020-04-05 15:30 | PM.PNGS ---
Progress Note: A&P Assessment and Plan (1) Ileus following gastrointestinal surgery: Onset Date: ~04/01/20 Code(s): K91.89 - Other postprocedural complications and disorders of digestive system; K56.7 - Ileus, unspecified Status: Acute Assessment and Plan: improved, will advance from clears to full liquids Will have dietitian discussed with her low residue diet since she had distal ileal surgery be sides removal of the appendiceal stump. Will probably have her follow this for 3 weeks and then continue a low-fat diet after that. Patient is walking much more in hallway and does not feel bloated herself. I explained that there were some residual signs of ileus on her plain abdominal films today so we need to continue to go somewhat slow in advancing her diet and probably remain on a low residue diet for a while after she goes home. (2) Hypokalemia: Code(s): E87.6 - Hypokalemia Status: Acute Assessment and Plan: replace c both IV and po supplementation and recheck in AM. Subjective Subjective Date/Time Seen: 04/05/20 15:30 Post Op day: POD #7 Patient reports: feels better and bowel movement (X3 today( all are very loose)) Interval history: Patient denies nausea or vomiting. She denies abdominal pain or upset. Review of Systems Constitutional: Constitutional: Reports as per HPI, Denies body ache(s), Denies chills, Reports fatigue, Denies headache(s), Reports lethargy and Reports weakness Eyes: Eyes: Denies loss of vision and Denies eye pain ENT: Reports Normal hearing present, Denies change in voice, Denies dizziness and Denies headache(s) Cardiovascular: Cardiovascular: Denies chest pain and Denies dyspnea Respiratory: Respiratory: Denies dyspnea and Denies wheezing Gastrointestinal: Gastrointestinal: Denies abdominal pain, Denies constipation, Reports diarrhea ( X3 loose stools day several yesterday), Denies loose stools, Denies nausea and Denies vomiting Genitourinary: Genitourinary: Denies menorrhagia and Denies urinary hesitancy Musculoskeletal: Musculoskeletal: Denies back pain and Denies arthralgias Neurologic: Reports Normal hearing present, Denies dizziness, Denies headache(s), Denies loss of vision, Denies memory loss and Reports weakness Psychiatric: Psychiatric: Denies memory loss and Denies panic attacks Endocrine: Endocrine: Reports no additional endocrine complaints and Reports fatigue Hematologic/Lymphatic: Hematologic/Lymphatic: Reports no additional hematologic/lymphatic complaints Allergic/Immunologic: Allergic/Immunologic: Denies wheezing Exam Const: General: no acute distress Nutritional Appearance: well nourished Orientation/consciousness: patient oriented x3 Limitations: no limitations HENMT: Head: normal to inspection, normocephalic and atraumatic Ears: hearing grossly normal bilaterally General nose exam: Normal external nose present Face and sinus: normal facial exam Mouth: Yes dry mucous membranes Eyes: General: appearance normal, both eyes and all related structures Pupils: Equal, round and reactive pupils present EOM: EOMs intact bilaterally Neck: Neck: normal visual inspection, no lymphadenopathy, trachea midline and supple Lymphatic: no lymphadenopathy noted Chest: Chest palpation & inspection: normal inspection of the chest Resp: Effort & Inspection: normal respiratory effort and able to speak in complete sentences Auscultation: clear to auscultation bilaterally Cardio: Jugular venous distension: no JVD Rate: regular rate Rhythm: regular rhythm Heart sounds: S1 normal heart sound present and S2 normal heart sound present GI: Inspection: normal to inspection and incision ( Laparoscopic trocar sites at umbilicus, Lt upper quad. & suprapubic area ) Auscultation: normal bowel sounds Rectal Exam: deferred Other: Good bowel sounds, sl dist, no real TTP, incisions C/D/I. : General: Yes no CVA tenderness External Female Exam: normal
[2020-04-05] MEDS: POTASSIUM CHLORIDE 20 MEQ TABLET (17:53)
[2020-04-05] MEDS: SACCHAROMYCES BOULARDII 250 MG CAPSULE PO (17:55)
--- NOTE | 2020-04-05 18:54 | PC.NURSE ---
AT [address] PHOENIX REQUESTED THAT THE IV RATE BE REDUCED TO 50CC/HR THIS WAS DONE UNABLE TO CHANGE IN COMPUTER.
[2020-04-06] VITALS: PULSE 84
[2020-04-06] MEDS: metroNIDAZOLE 500 MG/ISO 100ML 500 MG/100 ML BAG 100 MG IVPB ×2 (01:54→10:34)
[2020-04-06 04:00] VITALS: PULSE 59
[2020-04-06 05:43] VITALS: BP 146/86; PULSE 71; RESP 18; TEMP 36.9; O2SAT 98
[2020-04-06] MEDS: RIZATRIPTAN BENZOATE 10 MG TABLET PO (06:07)
[2020-04-06 06:23] LABS: Basophils Percent Auto 0.5 % (0.2-1.2); Eosinophils Absolute Auto 0.3 K/mm3 (0-0.3); Eosinophils Percent Auto 3.2 % (0-4.4); Hematocrit 28.8 % (37.0-47.0); Hemoglobin 9.4 g/dL (12.0-15.0); Immature Granulocyte Absolute 0.16 K/mm3 (0.00-0.031); Immature Granulocyte Percent A 1.8 % (0-0.5); Lymphocytes Absolute Auto 1.92 K/mm3 (0.9-3.2); Lymphocytes Percent Auto 21.9 % (18.3-44.2); Mean Corpuscular HGB Conc 32.6 g/dl (32-36); Mean Corpuscular Hemoglobin 29.6 pg (26-34); Mean Corpuscular Volume 90.6 fl (80-100); Mean Platelet Volume 9.4 fl (7.4-10.4); Monocytes Absolute Auto 0.5 K/mm3 (0.1-0.6); Monocytes Percent Auto 6.1 % (2.6-8.5); Neutrophils Absolute Auto 5.8 K/mm3 (1.3-6.7); Neutrophils Percent Auto 66.5 % (45.5-73.1); Platelet Count Result 296 k/mm3 (150-375); Red Blood Count 3.18 M/mm3 (4.2-5.4); Red Cell Distribution Width 13.5 % (11.5-14.5); White Blood Count 8.8 K/mm3 (4.5-10.0)
[2020-04-06 06:38] LABS: Alanine Aminotransferase 22 U/L (4-35); Albumin Level 2.8 g/dL (3.5-5.1); Alkaline Phosphatase 96 U/L (38-126); Anion Gap 7 mmol/L (8-16); Aspartate Amino Transferase 27 U/L (14-36); Bilirubin,Total 0.2 mg/dL (0.2-1.3); Blood Urea Nitrogen 3 mg/dL (7-17); Carbon Dioxide 24 mmol/L (22-30); Chloride 108 mmol/L (98-107); Estimated CRCL calculation 105 ml/min; Estimated Glomerular Filt Rate > 60; Glucose 106 mg/dL (65-105); Magnesium 1.7 mg/dL (1.6-2.3); Potassium 3.4 mmol/L (3.4-5.0); Sodium 139 mmol/L (137-145)
[2020-04-06 08:00] VITALS: PULSE 87
[2020-04-06] MEDS: levoFLOXacin 500 MG/D5W 100 ML 500 MG/100 ML BAG 100 MG IVPB (08:36)
[2020-04-06] MEDS: SACCHAROMYCES BOULARDII 250 MG CAPSULE PO ×2 (08:43→13:29)
[2020-04-06] MEDS: FLUoxetine HCL 20 MG CAPSULE PO (08:43)
[2020-04-06 08:44] VITALS: PULSE 71
[2020-04-06] MEDS: METOPROLOL TARTRATE 50 MG TAB PO (08:44)
[2020-04-06] MEDS: PANTOPRAZOLE SODIUM IV 40 MG VIAL IV PUSH (08:44)
--- NOTE | 2020-04-06 10:40 | PM.DS ---
DS: Admitting Diagnosis Admitting Diagnosis Admitting Diagnosis: post operative ileus DS: Discharge Diagnosis Discharge Diagnosis (1) Ileus following gastrointestinal surgery: Onset Date: ~04/01/20 Code(s): K91.89 - Other postprocedural complications and disorders of digestive system; K56.7 - Ileus, unspecified Status: Acute Assessment and Plan: This was the main reason for the patient's admission. She gradually improved over the 4 days of her admission. (2) Hypokalemia: Onset Date: ~03/2020 Code(s): E87.6 - Hypokalemia Status: Acute Assessment and Plan: Patient had low potassium several days during her admission this was replaced both orally and through her IV. (3) Obesity: Onset Date: Unknown Code(s): E66.9 - Obesity, unspecified Status: Acute Assessment and Plan: Patient will be discharged on a low-fat diet and will try to exercise. (4) HTN (hypertension): Onset Date: Unknown Code(s): I10 - Essential (primary) hypertension Status: Acute Assessment and Plan: Patient will resume her usual home medications and follow her blood pressure at home and with her PCP. DS: Summary Hospital Course Reason for hospitalization: Postop ileus with nausea Hospital Course: patient have fill early under vent full postop/ readmission hospitalization. She developed nausea and bloating at home following her procedure last week. Plain films in [place] revealed dilated small bowel consistent with an ileus. Therefore the patient was transfer back year an NG tube placed and she had NGT decompression and bowel rest for 2 days. Her diet was then gradually advanced from clears to full liquids and on the day of discharge she was starting a low residue low-fat diet. She required potassium supplementation because of low potassium levels. She otherwise progressed nicely and recovery from this problem. Status at Discharge Cognitive/behavioral status at discharge: Back to normal Functional status at discharge: independent ambulation Overall status at discharge: patient is back to baseline Time Spent with Patient Time attestation: Total time spent providing and/or coordinating discharge services: 40 minutes Time spent: Greater than 30 minutes Specific discharge activities: patient is to walk as much she feels comfortable. She will limit her diet to low residue in low-fat foods. She was specially limit her diet to easily dye just will things for 2-3 days until she feels back to normal. Because of her previous problems with diarrhea after antibiotics she will take a probiotic at home has she finishes her antibiotics and for a while afterwards. Exam Const: General: no acute distress Nutritional Appearance: well nourished Orientation/consciousness: patient oriented x3 Limitations: no limitations HENMT: Head: normal to inspection, normocephalic and atraumatic Ears: hearing grossly normal bilaterally General nose exam: Normal external nose present Face and sinus: normal facial exam Mouth: Yes dry mucous membranes Eyes: General: appearance normal, both eyes and all related structures Pupils: Equal, round and reactive pupils present EOM: EOMs intact bilaterally Neck: Neck: normal visual inspection, no lymphadenopathy, trachea midline and supple Lymphatic: no lymphadenopathy noted Chest: Chest palpation & inspection: normal inspection of the chest Resp: Effort & Inspection: normal respiratory effort and able to speak in complete sentences Auscultation: clear to auscultation bilaterally Cardio: Jugular venous distension: no JVD Rate: regular rate Rhythm: regular rhythm Heart sounds: S1 normal heart sound present and S2 normal heart sound present GI: Inspection: normal to inspection and incision ( Laparoscopic trocar sites at umbilicus, Lt upper quad. & suprapubic area ) Auscultation: normal bowel sounds Rectal Exam: deferred Other: Good
[2020-04-06 12:00] VITALS: PULSE 65
--- NOTE | 2020-04-06 15:36 | PCDIET ---
Seeing pt today for edu on low fiber diet. We reviewed rationale along with recommend and non recommend foods. Pt handouts and contact provided. Pt encouraged to call with questions.
== END 2020-04-06 14:47 | disposition home or self-care (01) | DRG 394 ==
PROVIDERS: Admitting Provider Surgery; PCP Internal Medicine; Visit Provider Surgery
DX: K91.89 Other postprocedural complications and disorders of digestive system (principal); K56.7 Ileus, unspecified; E87.6 Hypokalemia; E66.9 Obesity, unspecified; I10 Essential (primary) hypertension; M19.90 Unspecified osteoarthritis, unspecified site; E78.00 Pure hypercholesterolemia, unspecified; Z68.35 Body mass index [BMI] 35.0-35.9, adult; D25.9 Leiomyoma of uterus, unspecified
CPT/HCPCS: 36415; 71046; 74018; 74019; 80048; 80053; 81001; 83690; 83735; 85025; 85027; 85049; 87040; 88304; 96361; 96365; 96366; 96367; 96375; 96376; 97110; 97116; 97161; 97165; 97535; A9270; C9113; G0378; J0131; J0330; J1100; J1650; J1956; J2250; J2270; J2405; J2543; J2704; J2710; J3010; J3480; J7030; J7120

== ENCOUNTER 2020-09-04 10:30 | Outpatient (CLI) | payer BC, SELFPAY ==
[2020-09-04 10:51] LABS: Add Urine Microscopic? YES; Appearance Urine Clear (Clear); Bilirubin Urine Negative (Negative); Blood Urine 1+ (Negative); Color Urine Yellow (Yellow); Glucose Urine UA Negative (Negative); Ketones Urine Negative (Negative); Leukocyte Esterase Ur 1+ (Negative); Nitrate Urine Negative (Negative); Protein Urine Negative (Negative); Urobilinogen Urine 0.2 mg/dL (0.2-1.0); pH Urine 5.5 (5.0-8.0)
[2020-09-04 10:55] LABS: Bacteria Urine 1+ /hpf; RBC Urine 0-2 /hpf (0-2); Squamous Epithelial Cell Urine Moderate /hpf (Few)
[2020-09-04 11:00] LABS: Hemoglobin A1C 5.9 % (<5.7)
[2020-09-04 11:45] LABS: Alanine Aminotransferase 29 U/L (14-59); Albumin Level 4.2 g/dL (3.4-5.0); Alkaline Phosphatase 132 U/L (46-116); Anion Gap 10 mmol/L (8-16); Aspartate Amino Transferase 13 U/L (15-37); Bilirubin,Total 0.4 mg/dL (0.00-1.00); Blood Urea Nitrogen 17 mg/dL (7-18); Calcium 9.4 mg/dL (8.5-10.1); Carbon Dioxide 30 mmol/L (21-32); Chloride 102 mmol/L (98-108); Cholesterol 201 mg/dL (0-200); Creatine Kinase 72 U/L (26-192); Estimated Glomerular Filt Rate > 60; Glucose 102 mg/dL (70-99); HDL Direct 56 mg/dL (40-60); LDL Cholesterol Calculated 125 mg/dL (<130); Osmolality Calculated 295 mOsm/kg (285-295); Potassium 4.4 mmol/L (3.5-5.1); Sodium 142 mmol/L (136-145); Total Protein 7.7 g/dL (6.4-8.2); Triglycerides 100 mg/dL (0-150)
== END 2020-09-04 10:31 | disposition home or self-care (01) ==
LOC: CHSLAB 10:32
PROVIDERS: PCP Internal Medicine; Visit Provider Internal Medicine
DX: E78.2 Mixed hyperlipidemia (principal); I10 Essential (primary) hypertension; R73.01 Impaired fasting glucose
CPT/HCPCS: 36415; 80053; 80061; 81001; 82550; 83036

== ENCOUNTER 2020-12-15 16:56 | Outpatient (CLI) | payer BC, SELFPAY ==
--- NOTE | ~2020-12-15 | CT_ITS ---
EXAMINATION: CT abdomen pelvis w con DATE: 12/15/2020 18:10 INDICATION: Epigastric abdominal pain. TECHNIQUE: Computed tomography (CT) of the abdomen and pelvis was performed with 100 mL Omnipaque 350 intravenous contrast. Automated exposure control and iterative reconstruction technique were employe d. The dose-length product was 919.70 mGy-cm. COMPARISON: CT abdomen and pelvis 03/05/2019 FINDINGS: The visualized portions of the lung bases demonstrate mild atelectasis. No pleural effusion . The heart size is normal. No pericardial effusion. There is an 8 mm cyst in the liver. The gallblad shakeel, spleen, pancreas, adrenal glands, and right kidney are normal. There are cysts in left kidney me asuring up to 16 mm. There is diverticulosis of the colon without evidence of diverticulitis. There a re changes of appendectomy. There is an umbilical hernia containing nonobstructed small bowel. There is fat stranding in this area, consistent with inflammation versus edema. There are no pathologically enlarged lymph nodes. There is no free intraperitoneal fluid. There is a 2.7 cm uterine fibroid. The re is mild thoracolumbar spondylosis. IMPRESSION: 1. Umbilical hernia containing nonobstructed small bowel. Reviewed, dictated and finalized at location A.
[2020-12-15 17:18] LABS: Estimated Glomerular Filt Rate > 60
[2020-12-15 18:48] LABS: Basophils Absolute Auto 0.04 K/mm3 (0.00-0.10); Basophils Percent Auto 0.5 % (0.0-1.0); Eosinophils Absolute Auto 0.32 K/mm3 (0.02-0.50); Eosinophils Percent Auto 4.2 % (1.0-6.0); Hematocrit 37.3 % (35.0-49.0); Hemoglobin 11.9 g/dL (12.0-15.0); Immature Granulocyte Absolute 0.02 K/mm3 (0.00-0.00); Immature Granulocyte Percent A 0.3 % (0.0-0.0); Lymphocytes Absolute Auto 2.42 K/mm3 (1.10-4.50); Lymphocytes Percent Auto 32.1 % (18.0-42.0); Mean Corpuscular HGB Conc 31.9 g/dL (32.0-36.0); Mean Corpuscular Hemoglobin 30.4 pg (27.0-31.0); Mean Corpuscular Volume 95.4 fL (78.0-102.0); Mean Platelet Volume 11.4 fl (9.2-11.8); Monocytes Absolute Auto 0.42 K/mm3 (0.10-0.90); Monocytes Percent Auto 5.6 % (2.0-11.0); Neutrophils Absolute Auto 4.3 K/mm3 (1.7-7.2); Neutrophils Percent Auto 57.3 % (50.0-70.0); Platelet Count Result 233 K/mm3 (150-420); Red Blood Count 3.91 M/mm3 (4.20-5.40); Red Cell Distribution Width 12.9 % (11.6-14.4); White Blood Count 7.5 K/mm3 (4.8-10.8)
[2020-12-15 18:57] LABS: Alanine Aminotransferase 27 U/L (14-59); Albumin Level 3.9 g/dL (3.4-5.0); Alkaline Phosphatase 139 U/L (46-116); Amylase 74 U/L (25-115); Anion Gap 10 mmol/L (8-16); Aspartate Amino Transferase 18 U/L (15-37); Bilirubin,Total 0.3 mg/dL (0.00-1.00); Blood Urea Nitrogen 20 mg/dL (7-18); Calcium 9.3 mg/dL (8.5-10.1); Carbon Dioxide 28 mmol/L (21-32); Chloride 104 mmol/L (98-108); Glucose 99 mg/dL (70-99); Lipase 141 U/L (73-393); Osmolality Calculated 296 mOsm/kg (285-295); Potassium 4.3 mmol/L (3.5-5.1); Sodium 142 mmol/L (136-145); Total Protein 7.9 g/dL (6.4-8.2)
== END 2020-12-15 16:57 | disposition home or self-care (01) ==
PROVIDERS: PCP Internal Medicine; Visit Provider Internal Medicine
DX: R10.9 Unspecified abdominal pain (principal); K42.9 Umbilical hernia without obstruction or gangrene
CPT/HCPCS: 74177; 80053; 82150; 83690; 85025; Q9967

== ENCOUNTER → 2021-01-01 02:05 | Outpatient (CLI) | payer BC, SELFPAY ==
[2021-01-01 19:56] LABS: SARS-CoV-2 RNA PCR Negative
== END ==
PROVIDERS: PCP Internal Medicine; Visit Provider Surgery
DX: Z01.812 Encounter for preprocedural laboratory examination (principal); Z20.822 Contact with and (suspected) exposure to COVID-19
CPT/HCPCS: C9803; U0003; U0005

== ENCOUNTER 2021-01-01 07:35 | Outpatient (CLI) | payer BC, SELFPAY ==
--- NOTE | 2021-01-01 | ECG_ITS ---
Measurements Intervals [place] Rate: 46 P: 59 [place]: 149 QRS: -3 QRSD: 101 T: 4 QT: 479 QTc: 420 Interpretive Statements SINUS BRADYCARDIA LOW QRS VOLTAGE IN PRECORDIAL LEADS INCOMPLETE RIGHT BUNDLE BRANCH BLOCK BORDERLINE T WAVE ABNORMALITY- ANTERIOR LEADS ABNORMAL ECG Electronically Signed On 01-01-2021 12:05:03 CDT by Eldon Lara D.O.
== END 2021-01-01 07:36 | disposition home or self-care (01) ==
PROVIDERS: PCP Internal Medicine; Referring Provider Anesthesiology; Visit Provider Surgery
DX: Z01.818 Encounter for other preprocedural examination (principal); K43.2 Incisional hernia without obstruction or gangrene; E78.00 Pure hypercholesterolemia, unspecified; I10 Essential (primary) hypertension; I45.10 Unspecified right bundle-branch block; R00.1 Bradycardia, unspecified
CPT/HCPCS: 36415; 86850; 86900; 86901; 93005

== ENCOUNTER 2021-01-04 02:42 | Day surgery (SDC) | payer BC, SELFPAY ==
[2020-12-27 14:00] VITALS: BMI 33.3
[2021-01-04] VITALS (10 sets, daily range): BP systolic 121–155; BP diastolic 71–83; PULSE 46–54; RESP 10–16; TEMP 36–36.1; O2SAT 96–100; BMI 35.0
[2021-01-04] MEDS: ACETAMINOPHEN 500 MG TABLET 1000 MG PO (06:55)
--- NOTE | 2021-01-04 07:00 | WPDANESEPPF ---
Anes - Initial Pre Proc Eval Procedure: Operation Date: 01/04/21 08:00 Proposed Procedures p Laparoscopic Incisional Hernia Repair With Mesh, Da Horacio Assisted - Estiven Melgar DO Date/Time: 01/04/21 07:00 Surgeon: Estiven Melgar DO Pre Op Diagnosis: Incisional Hernia Patient Data Age: 55 Gender: F Height: 1.65 m Weight: 90.7 kg Allergies Allergy/AdvReac Type Severity Reaction Status Date / Time morphine AdvReac Intermediate Migraine Verified 01/04/21 06:45 Home Medications Medication Instructions Recorded Confirmed Type fluoxetine 20 mg PO DAILY 03/28/20 01/04/21 History metoprolol tartrate 50 mg PO BID 03/28/20 01/04/21 History rizatriptan [Maxalt-STEEL CUTTER] 10 mg PO ONCE PRN 03/28/20 12/27/20 History simvastatin 20 mg PO HS 03/28/20 12/27/20 History acetaminophen 650 mg 650 mg PO Q12H 12/20/20 12/27/20 History tablet,extended release cetirizine 10 mg capsule 10 mg PO DAILY PRN 12/20/20 12/27/20 History cranberry 400 mg capsule 400 mg PO DAILY 12/20/20 01/04/21 History multivitamin 1 tablet PO DAILY 12/20/20 01/04/21 History Patient hx anesthesia problems: none Family hx anesthesia problems: none PMFSH Past Medical History Medical History Arthritis HTN (hypertension) (Unknown) Hypercholesterolemia (Unknown) Meckel's diverticulum (~02/2019) Obesity (Unknown) Surgical History Surgical History H/O knee surgery History of right salpingo-oophorectomy History of tubal ligation S/P laparoscopic appendectomy Family History Family History Mother , age 74 Diabetes mellitus Family history of malignant neoplasm Acute myocardial infarction Hypertension High cholesterol Social History Social History Smoking status: Never smoker Alcohol intake: current Drinks per week: 1 Substance use: never Substance use type: does not use 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[employer]) Gender identity (if verbalized by the patient): Female Spiritual care concerns: No Anes - Eval Final PreProcedure Day of Procedure 01/04/21 07:00 Patient weight: obese Heart: regular rate and rhythm Lungs: clear to auscultation and normal air movement Airway: Mallampati scale class II Neurological: alert and oriented Last oral intake: >/= 8 hours ASA classification: III Emergent: no Anesthetic plan: proceed Anesthesia type and monitoring: general ETT and standard monitoring Informed Consent: The patient's anesthetic plan and its attendant risks and benefits were discussed with the patient/family/POA. Questions were solicited and answers provided to the satisfaction of the patient/family/POA.
[2021-01-04] MEDS: LACTATED RINGERS 1,000 ML 30 ML IV CONT ×2 (07:05→09:59)
[2021-01-04] MEDS: KETOROLAC 15 MG/ML VIAL (*BKC) IV PUSH (07:07)
--- NOTE | 2021-01-04 07:28 | WPDHPUPDATE1 ---
History and Physical Update Update Date/Time: 01/04/21 07:28 History and Physical has been reviewed, including an updated exam of the patient. There are NO changes in the patient's condition. Risks, benefits, and alternatives have been discussed and questions answered. Patient agrees to proceed with procedure.
[2021-01-04] MEDS: ceFAZolin 2 GM/D5W 50 ML 2 GM/50 ML BAG IVPB (08:00)
--- NOTE | 2021-01-04 09:55 | PM.PROC ---
Procedure Note - Detailed Date of procedure: 01/04/21 Pre-op diagnosis: Incisional Hernia Post-op diagnosis: same Procedure performed: Laparoscopic incisional hernia repair with Symbotex mesh, da Horacio assisted Description of procedure: Procedure as well as risks, benefits, and alternatives were discussed with the patient. Written consent was obtained and placed in chart prior to procedure. Patient was brought back to surgical suite. She was placed supine on operating table. Time-out was done to confirm patient and procedure. She was then intubated by the anesthesia department. A bump was placed under her left hip, and the bed was flexed slightly to extend the space between her costal margin and iliac crest. her abdomen was prepped and draped in sterile fashion using chlorhexidine prep. A 5 millimeter incision was made in the left upper quadrant, and a 5 millimeter Optiview trocar was advanced through the abdominal layers under direct visualization. Once inside the abdominal cavity, carbon dioxide insufflation was used to create a pneumoperitoneum. Her abdomen was inspected. An 8 millimeter incision was made in the left lower quadrant, and an 8 millimeter robotic trocar was placed under direct visualization. Another 8 millimeter incision was made in the left lateral abdomen, and an 8 millimeter robotic trocar was placed under direct visualization. Exparel was infiltrated along the lateral abdominal bloom to perform a transversus abdominis plane block bilaterally. The 5 millimeter port was removed, the incision was extended to 12 millimeters, and a 12 millimeter air seal port was placed under direct visualization. A Jesús-Mccall cone was also used to place an 0-Vicryl simple interrupted suture at this trocar site. The robotic arms were brought up to the patient's bedside and secured to the ports. The camera and instruments were inserted, and I then moved over to the robotic console and took control of the camera and instruments. After careful thorough inspection of the abdominal cavity, I began my dissection at the hernia. The hernia sac and preperitoneal fat was excised to clear the fascia around the hernia. I then measured the hernia size. The hernia measured 2 cm x 2 cm. The fascia was closed using an 0-Stratafix running suture in a vertical fashion. A Symbotex 15cm x 10cm mesh was then placed within the abdominal cavity. This was oriented vertically with the mesh centered on the hernia defect. The mesh was then secured around the perimeter to the abdominal wall using 2 0 V lock running absorbable suture. The repair was inspected, and one final inspection was made around the abdominal cavity. The robotic instruments were then removed, and the robotic arms were disengaged from the trocars. The ports were then removed under direct visualization, the camera was removed, and the pneumoperitoneum was released. The 0 Vicryl transfascial suture was tied down. The skin of the incisions was then approximated using 4-0 Monocryl subcuticular suture. Exofin glue was then applied on top. The patient was then awakened from anesthesia, extubated, and transferred to recovery. Implants: Symbotex 15cm x 10cm mesh Anesthesia: GETA and local (Exparel) Surgeon: Estiven Melgar DO Estimated blood loss (mL): 5 Drains: No Pathology: yes (Hernia sac) Complications: No immediate complications Condition: stable Disposition: same day Findings: this is a 55-year-old woman who presented with a hernia from a prior laparoscopic procedure. She has previously undergone laparoscopic appendectomy and laparoscopic Meckel's diverticulectomy. She has recently noticed a bulge just to the left of her umbilicus. A CT showed evidence of a hernia in this location containing a loop of small bowel. The hernia was reducible on exam but she was having pain with activity. Discussions were made with the patient about treatment options and decision was made to proceed with laparo
[2021-01-04] MEDS: fentaNYL CITRATE INJ (*CRX) 100 MCG/2 ML VIAL 25 MCG IV PUSH ×6 (10:19→10:51)
[2021-01-04] MEDS: oxyCODONE HCL (*CRX) 5 MG TAB IR PO (11:28)
[2021-01-04] MEDS: ONDANSETRON INJ 4 MG/2 ML VIAL IV PUSH (12:00)
== END 2021-01-04 12:22 | disposition home or self-care (01) ==
PROVIDERS: PCP Internal Medicine; Visit Provider Surgery
PROC: (CPT 49654; principal; 2021-01-04 08:00)
DX: K43.2 Incisional hernia without obstruction or gangrene (principal); I10 Essential (primary) hypertension; E78.00 Pure hypercholesterolemia, unspecified; E66.9 Obesity, unspecified; Z68.35 Body mass index [BMI] 35.0-35.9, adult
CPT/HCPCS: 49654; S2900; 36415; 86850; 86900; 86901; 88300; 93005; A9270; C1781; C9290; C9803; J0690; J1100; J1885; J2250; J2405; J2704; J2710; J3010; J7030; J7120; U0003; U0005

== ENCOUNTER 2021-01-26 10:29 | Outpatient (CLI) | payer BC, SELFPAY ==
--- NOTE | ~2021-01-26 | MM_ITS ---
EXAMINATION: MM screening [facility] BI w janette HISTORY: Screening mammogram TECHNIQUE: Craniocaudal and mediolateral oblique 3-D tomosynthesis images were obtained and synthetic 2-D images were generated. CAD analysis was submitted and interpreted. COMPARISON: 03/28/2019, 02/28/2018, 12/11/2013 BREAST PARENCHYMAL COMPOSITION: The breasts are heterogeneously dense, which may obscure small masses . FINDINGS: There is no evidence of suspicious mass, calcification, or architectural distortion to sugg est malignancy in either breast. There has been no suspicious interval change. IMPRESSION: 1. No mammographic evidence of malignancy. 2. Recommend routine screening mammography in one year. BI-RADS Category 1: Negative Reviewed, dictated and finalized at location A.
== END 2021-01-26 10:30 | disposition home or self-care (01) ==
LOC: CHSIMG 10:30
PROVIDERS: PCP Internal Medicine; Visit Provider Internal Medicine
DX: Z12.31 Encounter for screening mammogram for malignant neoplasm of breast (principal)
CPT/HCPCS: 77063; 77067

== ENCOUNTER 2021-02-17 08:07 | Outpatient (CLI) | payer BC, SELFPAY ==
[2021-02-17 08:23] LABS: Add Urine Microscopic? YES; Appearance Urine Clear (Clear); Bilirubin Urine Negative (Negative); Blood Urine 1+ (Negative); Color Urine Light Yellow (Yellow); Glucose Urine UA Negative (Negative); Ketones Urine Negative (Negative); Leukocyte Esterase Ur 1+ (Negative); Nitrate Urine Negative (Negative); Protein Urine Negative (Negative); Urobilinogen Urine 0.2 mg/dL (0.2-1.0); pH Urine 5.5 (5.0-8.0)
[2021-02-17 08:26] LABS: Bacteria Urine 2+ /hpf; Squamous Epithelial Cell Urine Moderate /hpf (Few)
[2021-02-17 08:42] LABS: Hemoglobin A1C 6.5 % (<5.7)
[2021-02-17 09:20] LABS: Alanine Aminotransferase 32 U/L (14-59); Alkaline Phosphatase 162 U/L (46-116); Anion Gap 12 mmol/L (8-16); Aspartate Amino Transferase 19 U/L (15-37); Bilirubin,Total 0.4 mg/dL (0.00-1.00); Blood Urea Nitrogen 24 mg/dL (7-18); Calcium 9.4 mg/dL (8.5-10.1); Carbon Dioxide 29 mmol/L (21-32); Chloride 105 mmol/L (98-108); Cholesterol 223 mg/dL (0-200); Creatine Kinase 72 U/L (26-192); Estimated Glomerular Filt Rate > 60; Glucose 103 mg/dL (70-99); HDL Direct 50 mg/dL (40-60); LDL Cholesterol Calculated 148 mg/dL (<130); Osmolality Calculated 306 mOsm/kg (285-295); Potassium 4.5 mmol/L (3.5-5.1); Sodium 146 mmol/L (136-145); Total Protein 7.3 g/dL (6.4-8.2); Triglycerides 124 mg/dL (0-150)
== END 2021-02-17 08:08 | disposition home or self-care (01) ==
LOC: CHSLAB 08:09
PROVIDERS: PCP Internal Medicine; Visit Provider Internal Medicine
DX: E78.2 Mixed hyperlipidemia (principal); I10 Essential (primary) hypertension; R73.01 Impaired fasting glucose
CPT/HCPCS: 36415; 80053; 80061; 81001; 82550; 83036

== ENCOUNTER 2021-05-21 09:14 | Outpatient (CLI) | payer BC, SELFPAY ==
[2021-05-21 10:12] LABS: Hemoglobin A1C 6.2 % (<5.7)
[2021-05-21 10:14] LABS: Alanine Aminotransferase 27 U/L (14-59); Alkaline Phosphatase 152 U/L (46-116); Anion Gap 6 mmol/L (8-16); Aspartate Amino Transferase 16 U/L (15-37); Bilirubin,Total 0.4 mg/dL (0.00-1.00); Blood Urea Nitrogen 19 mg/dL (7-18); Calcium 9.4 mg/dL (8.5-10.1); Carbon Dioxide 31 mmol/L (21-32); Chloride 106 mmol/L (98-108); Cholesterol 189 mg/dL (0-200); Creatine Kinase 78 U/L (26-192); Estimated Glomerular Filt Rate > 60; Glucose 108 mg/dL (70-99); HDL Direct 50 mg/dL (40-60); LDL Cholesterol Calculated 121 mg/dL (<130); Osmolality Calculated 299 mOsm/kg (285-295); Sodium 143 mmol/L (136-145); Total Protein 7.2 g/dL (6.4-8.2); Triglycerides 90 mg/dL (0-150)
== END 2021-05-21 09:15 | disposition home or self-care (01) ==
LOC: CHSLAB 09:15
PROVIDERS: PCP Internal Medicine; Visit Provider Internal Medicine
DX: E78.2 Mixed hyperlipidemia (principal); E11.9 Type 2 diabetes mellitus without complications
CPT/HCPCS: 36415; 80053; 80061; 82550; 83036

== ENCOUNTER 2022-06-17 08:58 | Outpatient (CLI) | payer OTHER, SELFPAY ==
[2022-06-17 09:30] LABS: Bilirubin Urine Negative (Negative); Blood Urine 1+ (Negative); Glucose Urine UA Negative (Negative); Ketones Urine Negative (Negative); Leukocyte Esterase Ur 2+ (Negative); Nitrate Urine Negative (Negative); Protein Urine Negative (Negative); Urobilinogen Urine 0.2 mg/dL (0.2-1.0)
[2022-06-17 09:39] LABS: Add Urine Microscopic? YES; Appearance Urine Cloudy (Clear); Color Urine Light Yellow (Yellow)
[2022-06-17 09:40] LABS: Bacteria Urine 2+ /hpf; Squamous Epithelial Cell Urine Moderate /hpf (Few)
[2022-06-17 09:50] LABS: Alanine Aminotransferase 21 U/L (14-59); Albumin Level 3.7 g/dL (3.4-5.0); Alkaline Phosphatase 128 U/L (46-116); Anion Gap 7 mmol/L (8-16); Aspartate Amino Transferase 15 U/L (15-37); Bilirubin,Total 0.5 mg/dL (0.00-1.00); Blood Urea Nitrogen 17 mg/dL (7-18); Calcium 8.8 mg/dL (8.5-10.1); Carbon Dioxide 27 mmol/L (21-32); Chloride 109 mmol/L (98-108); Cholesterol 193 mg/dL (0-200); Creatine Kinase 82 U/L (26-192); Estimated Glomerular Filt Rate > 60; Glucose 101 mg/dL (70-99); HDL Direct 54 mg/dL (40-60); LDL Cholesterol Calculated 122 mg/dL (<130); Osmolality Calculated 297 mOsm/kg (285-295); Potassium 3.9 mmol/L (3.5-5.1); Sodium 143 mmol/L (136-145); Total Protein 7.3 g/dL (6.4-8.2); Triglycerides 85 mg/dL (0-150)
[2022-06-23 23:17] LABS: Vitamin D 25 Hydroxy 31 ng/mL (30-100)
== END 2022-06-17 08:59 | disposition home or self-care (01) ==
LOC: CHSLAB 09:02
PROVIDERS: PCP Internal Medicine; Visit Provider Internal Medicine
DX: E78.2 Mixed hyperlipidemia (principal); I10 Essential (primary) hypertension; M81.0 Age-related osteoporosis without current pathological fracture; E11.9 Type 2 diabetes mellitus without complications
CPT/HCPCS: 36415; 80053; 80061; 81001; 82306; 82550; 83036

== ENCOUNTER 2023-01-01 12:43 | Outpatient (CLI) | payer OTHER, SELFPAY ==
--- NOTE | ~2023-01-01 | MM_ITS ---
EXAMINATION: MM screening [facility] BI w janette HISTORY: Screening mammogram TECHNIQUE: Craniocaudal and mediolateral oblique 3-D tomosynthesis images were obtained and synthetic 2-D images were generated. CAD analysis was submitted and interpreted. COMPARISON: 01/26/2021, 03/28/2019, 02/28/2018 BREAST PARENCHYMAL COMPOSITION: The breasts are heterogeneously dense, which may obscure small masses . FINDINGS: RIGHT BREAST: There is focal asymmetry in the posterior third of the outer breast. LEFT BREAST: No suspicious mass, calcification, or architectural distortion are identified to suggest malignancy. There has been no suspicious interval change. IMPRESSION: 1. Right breast focal asymmetry. 2. Additional mammographic views and possible breast ultrasound are recommended. BI-RADS Category 0: Incomplete: Needs additional imaging evaluation. Reviewed, dictated and finalized at location A. IMPRESSION: 1. Right breast focal asymmetry. 2. Additional mammographic views and possible breast ultrasound are recommended . BI-RADS Category 0: Incomplete: Needs additional imaging evaluation.
== END 2023-01-01 12:44 | disposition home or self-care (01) ==
LOC: CHSIMG 12:44
PROVIDERS: PCP Internal Medicine; Visit Provider Internal Medicine
DX: Z12.31 Encounter for screening mammogram for malignant neoplasm of breast (principal); R92.8 Other abnormal and inconclusive findings on diagnostic imaging of breast
CPT/HCPCS: 77063; 77067